=== PATIENT | female | born 1950 | race Caucasian/White ===

== ENCOUNTER → 2016-08-07 | Outpatient (CLI) | payer OTHER ==
--- NOTE | 2016-08-07 14:49 | DIAGNOSTIC IMAGING REPORT ---
LEFT FOOT MIN 3 VIEWS CLINICAL HISTORY: FRACTURE OF LEFT 5TH METATARSAL COMPARISON STUDY: Left foot 06/05/2016. FINDINGS: No change in the well corticated ossific density adjacent to the base of the fifth metatarsal. This may be due to an old avulsion injury. No acute fracture dislocation within the left foot. Soft tissues are unremarkable. The Lisfranc joint is intact. Mild osteoarthritis at the first MTP joint. IMPRESSION: No change from the prior study. Well-corticated ossific density adjacent to the base of the fifth metatarsal which is likely old. No acute fractures. Electronically signed by: Narayan Gil M.D. 08/07/2016 2:47 PM Dictated Date/Time: 08/07/2016 2:44 PM
== END | disposition home or self-care (01) ==
LOC: C.RDSM 13:00
PROVIDERS: ATTEND Physical Medicine & Rehabilitation Sports Medicine
DX: S92.355A Nondisplaced fracture of fifth metatarsal bone, left foot, initial encounter for closed fracture (principal); X58.XXXA Exposure to other specified factors, initial encounter